=== PATIENT | male | born 1955 ===

== ENCOUNTER 2021-02-03 15:00 | Outpatient (CLI) | payer OTHER | END 2021-02-03 15:20 | disposition home or self-care (01) | LOC: PPH VACUNA 15:00 | PROVIDERS: ATTEND Emergency Medicine Pediatric Emergency Medicine | DX: Z23 Encounter for immunization (principal) ==

== ENCOUNTER → 2021-02-24 08:00 | Outpatient (CLI) | payer OTHER | END | disposition home or self-care (01) | LOC: PPH VACUNA 08:00 | PROVIDERS: ATTEND Emergency Medicine Pediatric Emergency Medicine | DX: Z23 Encounter for immunization (principal) ==

== ENCOUNTER 2024-05-07 13:13 | Outpatient (CLI) | payer OTHER | END 2024-05-07 13:20 | disposition home or self-care (01) | LOC: LAB 13:13 | DX: H44.19 Other endophthalmitis (principal) ==